=== PATIENT | male | born 1960 | race Asian ===

== ENCOUNTER 2017-05-20 10:30 | Outpatient (CLI) | payer OTHER ==
[~2017-05-20 10:30] MED LIST: Iopamidol 370 76% 100 ML VIAL ONE
[2017-05-20 11:08] LABS: Anion Gap 12 mmol/L (10-20); BUN (Urea Nitrogen) 16 mg/dL (8.4-25.7); Calc. Creatinine Clearance 0 mL/min (70-130); Calcium 9.8 mg/dL (7.8-10.44); Carbon Dioxide 28 mmol/L (22-29); Chloride 103 mmol/L (98-107); Estimated GFR-MDRD Greater than 90
--- NOTE | 2017-05-20 13:14 | CT ---
CT ABDOMEN AND PELVIS WITH AND WITHOUT CONTRAST: HISTORY: Hematuria for two years. COMPARISON: None. TECHNIQUE: Multiple contiguous axial images were obtained in a CT of the abdomen and pelvis with and without co ntrast. Coronal reformats were performed. Post contrast images were obtained in nephrographic and expiratory phases. FINDINGS: There are subcentimeter hypodensities in the bilateral kidneys, which are too small to definitely ch aracterize but likely represent cysts. No calcifications are seen in either kidney or ureter. The bilateral renal collecting systems are normal in appearance, without filling defects. The urinary b ladder is unremarkable. The liver, gallbladder, adrenal glands, spleen, and pancreas are unremarkable. No free air, free fl uid, or stranding changes are seen in the abdomen or pelvis. The large and small bowel are unremarkable. The appendix is unremarkable. No abdominal or pelvis l ymphadenopathy is seen. Degenerative changes are seen in the spine. The visualized inferior thorax and abdominal wall soft tissues are unremarkable. IMPRESSION: 1. Bilateral renal cysts. 2. No evidence of renal calcification or urinary collecting system abnormality. POS: [facility]
== END 2017-05-20 10:31 | disposition home or self-care (01) ==
LOC: SCSCT 10:30
PROVIDERS: ATTEND Urology
DX: R31.0 Gross hematuria (principal); R68.82 Decreased libido; N28.1 Cyst of kidney, acquired
CPT/HCPCS: 36415; 74178; 80048; 84153; 84403